=== PATIENT | female | born 1990 | race Caucasian/White ===

== ENCOUNTER 2017-04-21 10:11 | Emergency (ER) | payer BC, OTHER ==
[~2017-04-21] VITALS: Ht 162.6 cm; Wt 53.1 kg
[2017-04-21 10:18] VITALS: TEMP 36.6; Ht 162.6 cm; Wt 53.1 kg
[2017-04-21] MEDS ORDERED: SODIUM CHLORIDE 0.9% 1000ML 1,000 ML IV STA (11:04)
[2017-04-21 11:38] LABS: BASO % 1.5 %; BASO ABS # 0.14 K/uL (0-0.2); COMPLETE YES; EOS % 2.1 %; IG% 0.3 %; LYMPH % 26.8 %; LYMPH ABS # 2.56 K/uL (1.2-3.4); MEAN CORPUSCULAR HGB CONC 34.4 g/dl (32-36); MEAN PLATELET VOLUME 9.5 fL (7.4-10.4); MONO % 11.5 %; NEUT % 57.8 %; PLATELET COUNT 304 K/uL (130-400); RED BLOOD COUNT 4.14 M/uL (4.2-5.4); WHITE BLOOD COUNT 9.55 K/uL (4.8-10.8)
[2017-04-21 11:54] LABS: BLOOD UREA NITROGEN 8 mg/dl (7-18); CALCIUM 9.4 mg/dl (8.5-10.1); CARBON DIOXIDE 29 mmol/L (21-32); CHLORIDE 102 mmol/L (98-107); GLUCOSE 87 mg/dl (70-99); POTASSIUM 3.4 mmol/L (3.5-5.1); SODIUM 135 mmol/L (136-145)
[2017-04-21 12:28] VITALS: BP 120/89; PULSE 76; O2SAT 99
[2017-04-21 12:32] LABS: LYME DISEASE AB IGG NEG (NEG); LYME DISEASE AB IGM NEG (NEG)
--- NOTE | 2017-04-21 12:56 | EMERGENCY ROOM VISIT NOTE ---
History First contact with patient: 10:36 Chief Complaint: FLU LIKE SX Stated Complaint: FEVER OFF/ON 3 WEEKS, SWOLLEN GLANDS, UPSET STOMAC History of Present Illness The patient is a 26 year old female who presents to the Emergency Room with complaints of fever intermittently for 3 weeks. She also feels nauseated. She had a sore throat. The patient states 3 weeks ago a rash appeared that started on her right arm which was red and pruritic. She states it then spread to her chest and a small patch on her forehead. The rash has since resolved. The patient states that she has sore glands in her neck and it hurts to swallow. The patient also states that she does not have an appetite. She also feels like she has ear pain and a headache which is just a pain that she points to the right supraorbital region. She denies any pain behind the eyes. The patient does admit to a lot of postnasal drainage. Denies any cough but does admit to a dry cough and rattly. The patient also states that she has no appetite and has lost 7 pounds. The patient's vaccines are up-to-date. 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 She denies any known tick bites Review of Systems 10 system review was performed and was negative unless stated otherwise history of present illness. Past Medical/Surgical History Medical Problems: (1) Bunion, left foot (2) Tonsillitis Surgical Problems: (1) Status post bunionectomy Family History Cancer Diabetes mellitus Gallbladder disease Heart disease Hypertension Social History Smoking Status: Never Smoker Alcohol Use: none, occasionally Drug Use: none Marital Status: single Housing Status: lives with significant other Occupation Status: employed Current/Historical Medications No Active Prescriptions or Reported Meds Physical Exam Vital Signs Date Time Temp Pulse Resp B/P (MAP) Pulse Ox O2 Delivery O2 Flow Rate FiO2 04/21/17 12:28 76 18 120/89 99 Room Air 04/21/17 10:18 36.6 95 20 136/96 97 Room Air Physical Exam PHYSICAL EXAM: Vital Signs were reviewed: Temperature 36.6, blood pressure 136/ 96, pulse 95, respiratory rate 20 Reviewed Nurse's notes and agree. Oxygen saturation is 97 % on room air which is normal . GENERAL: 26-year-old female appears in no acute distress. MENTAL STATUS: Alert, oriented, coherent. EARS: Canals clear. TMs good light reflex, no erythema or fluid level noted. NOSE: Nasal mucosa with moderate erythema engorgement. PHARYNX: Moderate erythema, no edema noted. No exudate noted. Airway is adequate. NECK: Supple, bilateral tenderness to palpation with palpable anterior cervical nodes noted bilaterally. No palpable posterior nodes. Although the patient is tender to palpation over the right posterior cervical region. LUNGS: Clear to auscultation without wheezes rales or rhonchi. CARDIAC: Regular rate and rhythm without murmur. SKIN: Faint erythematous maculopapular rash noted on the right upper extremity. Medical Decision & Procedures Laboratory Results 04/21/17 11:10 Red Blood Count 4.14, Mean Corpuscular Volume 87.0, Mean Corpuscular Hemoglobin 30.0, Mean Corpuscular Hemoglobin Concent 34.4, Mean Platelet Volume 9.5, Neutrophils (%) (Auto) 57.8, Lymphocytes (%) (Auto) 26.8, Monocytes (%) (Auto) 11.5, Eosinophils (%) (Auto) 2.1, Basophils (%) (Auto) 1.5, Neutrophils # (Auto ) 5.52, Lymphocytes # (Auto) 2.56, Monocytes # (Auto) 1.10, Eosinophils # (Auto ) 0.20, Basophils # (Auto) 0.14 04/21/17 11:10 Test 04/21/17 11:10 White Blood Count 9.55 K/uL (4.8-10.8) Red Blood Count 4.14 M/uL (4.2-5.4) Hemoglobin 12.4 g/dL (12.0-16.0) Hematocrit 36.0 % (37-47) Mean Corpuscular Volume 87.0 fL (80-100) Mean Corpuscular Hemoglobin 30.0 pg (25-34) Mean Corpuscular Hemoglobin Concent 34.4 g/dl (32-36) Platelet Count 304 K/uL (130-400) Mean Platelet Volume 9.5 fL (7.4-10.4) Neutrophils (%) (Auto) 57.8 % Lymphocytes (%) (Auto) 26.8 % Monocytes (%) (Auto) 11.5 % Eosinophils (%) (Auto) 2.1 % Basophils (%) (Auto) 1.5 % Neutrophils # (Auto) 5.52 K/uL (1.4-6.5) Lymphocytes # (Auto) 2.56 K/uL (1.2-3.4) Monocytes # (Auto) 1.10 K/uL (0.11-0.59) Eosinophils # (Auto) 0.20 K/uL (0-0.5) Basophils # (Auto) 0.14 K/uL (0-0.2) RDW Standard Deviation 36.9 fL (36.4-46.3) RDW Coefficient of Variation 11.7 % (11.5-14.5) Immature Granulocyte % (Auto) 0.3 % Immature Granulocyte # (Auto) 0.03 K/uL (0.00-0.02) Anion Gap 4.0 mmol/L (3-11) Est Creatinine Clear Calc Drug Dose 142.9 ml/min Estimated GFR () > 150.0 Estimated GFR (Non- 133.6 BUN/Creatinine Ratio 15.0 (10-20) Calcium Level 9.4 mg/dl (8.5-10.1) Lyme Disease IgG Antibody NEG (NEG) Lyme Disease IgM Antibody NEG (NEG) Monoscreen NEG (NEG) Medications Administered Medications (Trade) Dose Ordered Sig/Liv Route Start Time Stop Time Status Last Admin Dose Admin Sodium Chloride 1,000 ml @ 999 mls/hr Q1H1M STAT IV 04/21/17 11:04 04/21/17 12:04 DC 04/21/17 11:04 999 MLS/HR ED Course The patient was evaluated. IV access was obtained. The patient was given 1 L normal saline wide-open. Rapid strep was negative. Culture is pending. Monospot was. Lyme was negative. CBC and differential renal profile was ordered. Labs are reviewed and were unremarkable. Monospot was negative. The patient was reevaluated and states she will felt better after having the fluids. The patient was discharged home in stable condition. Medical Decision Differential diagnosis include Lyme's disease, viral illness, strep pharyngitis , mononucleosis Medication Reconcilliation Current Medication List: was personally reviewed by me Blood Pressure Screening Patient's blood pressure: Elevated blood pressure Blood pressure disposition: Elevated BP felt to be situational Impression Primary Impression: Viral syndrome Departure Information Dispostion Home / Self-Care Condition GOOD Prescriptions No Active Prescriptions or Reported Meds Referrals No Doctor, Assigned (PCP) Forms HOME CARE DOCUMENTATION FORM, IMPORTANT VISIT INFORMATION Patient Instructions ED Viral Syndrome, My [facility] Additional Instructions Push fluids, rest. Continue [id number] symptomatic treatment for fever and body aches. If symptoms persist, follow-up your family doctor for reevaluation.
== END 2017-04-21 13:06 | disposition home or self-care (01) ==
LOC: C.EDB 10:12 → C.EDC 13:06
DX: B34.9 Viral infection, unspecified (principal); Z80.9 Family history of malignant neoplasm, unspecified; Z83.3 Family history of diabetes mellitus; Z83.79 Family history of other diseases of the digestive system; Z82.49 Family history of ischemic heart disease and other diseases of the circulatory system